=== PATIENT | male | born 1940 | race Caucasian/White ===

== ENCOUNTER 2017-11-29 12:56 | Inpatient (IN) ==
--- NOTE | 2017-11-29 14:57 | ED ---
HPI General Chief Complaint: Recheck/Abnormal Lab/Rx Stated Complaint: dr sent Time Seen by Provider: 11/29/17 14:13 Source: patient Mode of arrival: ambulatory Limitations: no limitations History of Present Illness MD Complaint: cough Onset (ago): month(s) Severity: mild Relieving factors: nothing Exacerbating factors: speaking Description of mucous: green Able to tolerate fluids by mouth: Yes Context: other (lymphoma) Treatments prior to arrival: antibiotics (3 different ABX in the past 6 weeks) Related Data Home Medications Medication Instructions Recorded Confirmed allopurinol 300 mg PO DAILY 10/29/17 11/29/17 apixaban [Eliquis] 5 mg PO BID 10/29/17 11/29/17 ascorbic acid (vitamin C) [Vitamin 500 mg PO DAILY 10/29/17 11/29/17 C] calcium carbonate [Calcium 500] 500 mg PO BID 10/29/17 11/29/17 cholecalciferol (vitamin D3) 1,000 unit PO DAILY 10/29/17 11/29/17 [Vitamin D3] coenzyme Q10 [Co Q-10] 100 mg PO DAILY 10/29/17 11/29/17 diltiazem HCl 240 mg PO DAILY 10/29/17 11/29/17 ibrutinib [Imbruvica] 420 mg PO DAILY 10/29/17 11/29/17 [id number]-algal oil 1 mg PO DAILY 10/29/17 11/29/17 [Metanx (algal oil)] [id number] oil [[place]-3 1 mg PO DAILY 10/29/17 11/29/17 Fish Oil] Allergies Allergy/AdvReac Type Severity Reaction Status Date / Time No Known Allergies Allergy Unverified 10/29/17 17:48 Review of Systems ROS: all other systems reviewed are negative [facility] Medical History Medical History A-fib (Acute) FH: cholecystectomy (Acute) Leukemia (Acute) Lymphoma (Acute) Melanoma (Acute) Family History Family History Sister Pancreatic cancer Mother Congestive heart failure Social History Social History Substance History: No History of Abuse Second Hand Smoke Exposure: No Smoking Status: Never smoker How Often Do You Have a Drink Containing Alcohol: Monthly or less Recent Travel in [facility] within the Last 8 Weeks: No Recent Out of Country Travel within the Last 8 Weeks: No Immunization History Tetanus Immunization: Unsure Hx Influenza Vaccine This Season: Yes Exam Const General: cooperative, healthy appearing and comfortable Orientation: alert, awake and oriented x3 Eyes Alignment and Position: alignment normal Conjunctivae: conjunctivae normal Sclera: sclerae normal EOM: EOM intact bilaterally Neck Neck: normal visual inspection, full ROM, no lymphadenopathy and supple Chest Chest: normal inspection of the chest Resp Effort & Inspection: normal respiratory effort and able to speak in complete sentences Auscultation: rhonchi (diffuse, mild) Cardio Rate: regular rate Rhythm: regular rhythm Back/Spine/Pelvis Cervical Spine: cervical ROM normal Thoracic/Lumbar Spine: thoraco-lumbar ROM normal Skin General: no rashes or lesions noted, turgor normal and dry skin Neuro General: alert, awake, oriented x3, moves all extremities and CN's II-XI intact bilaterally Extrem General: normal to inspection and full ROM Psych Appearance: grossly normal Mental Status: mental status grossly normal Speech and Movement: speech and movement normal Mood: congruent mood Affect: normal affect Attitude: cooperative Thought Process: normal Thought Content: normal Judgment: judgment good Course Initial Documented Vital Signs Temperature 97.5 F L 11/29/17 12:59 Pulse Rate 88 11/29/17 12:59 Respiratory Rate 17 11/29/17 12:59 Blood Pressure 114/66 11/29/17 12:59 Pulse Oximetry 97 11/29/17 12:59 Last Documented Vital Signs Temperature 97.9 F 12/01/17 16:00 Pulse Rate 73 12/01/17 16:00 Respiratory Rate 18 12/01/17 16:00 Blood Pressure 101/56 L 12/01/17 16:00 Pulse Oximetry 94 L 12/01/17 18:28 Sign Out Sign Out Data: Patient Sign Out occurred on 11/29/17 at 15:19. Patient's care was discussed, and care was transferred from Lorna Watkins to Rodrigo Lopez MD. Sign Out Comment: This patient is being signed out at 3 PM pending complete workup for possible pneumonia. All of his labs as well as the CT of his chest are pending. He has not yet been given any antibiotics. Last updated by Lorna Watkins at 11/29/17 15:11 Post-Handoff Eval: Patient CARE assume from Dr. Watkins by me Dr. Lopez at 1500, this is a 77-year- old male with a history of lymphoma on Imbruivcan presents emergency department with several months history of a cough. He has been on several courses of antibiotics including azithromycin, Keflex, Ceftin and the patient had No improvement, continues to have intermittent fevers as well as green productive sputum. Has a white count of 15,000, CT of the chest does show pleural effusion and consolidation of the left lower lobe. Discussion with the patient who appears quite well, we discussed options about inpatient management of his refractory pneumonia versus outpatient with a different antibiotic regimen. At this time he would like to be admitted to the hospital which I think is fair given his medical history his pleural effusion and the size of the pneumonia. He does also have elevated white count and fevers at home but is shy of Sirs criteria here. Blood cultures were started, he started on broad-spectrum antibiotics. Patient was also discussed with hematology oncology as well as hospitalist svp monetization. Medical Decision Making MDM Narrative Medical decision making narrative: This is an immunocompromised patient with a history of lymphoma who presents with a 6 weeks history of cough. He has been seen by his primary care physician who has treated him with 3 different antibiotics. His cough persist. His primary care physician sent him to us today for further evaluation and treatment. The patient reports that he has had outpatient plain films of his chest which have not shown pneumonia. He does have green purulent sputum. Medical Screen Exam Complete: Yes Emergency Medical Condition: Yes Differential Diagnosis Differential Diagnosis: Differential diagnosis includes but is not limited to viral respiratory illness, bronchitis, pneumonia, allergies, CHF, asthma/COPD. Medical Records Medical records reviewed: Yes I reviewed the patient's medical records. Medical history includes melanoma, lymphoma, anemia and atrial fibrillation. Lab Data Result diagrams: 12/01/17 06:33 12/01/17 09:15 Lab Results 11/29/17 11/29/17 11/29/17 Range/Units 15:05 15:05 15:05 WBC 14.9 H (4.0-11.0) th/mm3 RBC 3.81 L (4.50-5.90) mil/mm3 Hgb 12.3 L (13.0-17.0) gm/dL Hct 36.3 L (39.0-51.0) % MCV 95.3 (80.0-100.0) fL MCH 32.4 (27.0-34.0) pg MCHC 34.0 (32.0-36.0) % RDW 16.5 (11.6-17.2) % Plt Count 221 (150-450) th/mm3 MPV 6.8 L (7.0-11.0) fL Prelim Diff (Auto) Neut % (Auto) 80.3 H (16.0-70.0) % Lymph % (Auto) 11.7 (9.0-44.0) % Pitt % (Auto) 7.0 (0.0-8.0) % Eos % (Auto) 0.4 (0.0-4.0) % Baso % (Auto) 0.6 (0.0-2.0) % Neut # (Auto) 12.0 H (1.8-7.7) th/mm3 Lymph # (Auto) 1.7 (1.0-4.8) th/mm3 Pitt # (Auto) 1.0 H (0.0-0.9) th/mm3 Eos # (Auto) 0.1 (0.0-0.4) th/mm3 Baso # (Auto) 0.1 (0.0-0.2) th/mm3 WBC Differential . Seg Neuts % (Manual) (16-70) % Band Neuts % (Manual) (0-6) % Lymphocytes % (Manual) (9-44) % Monocytes % (Manual) (0-8) % Eosinophils % (Manual) (0-4) % Metamyelocytes % (Man) (0-1) % Myelocytes % (Man) (0-0) % Abs Neuts (Manual) (1.8-7.7) th/mm3 Differential Comment Auto diff final Platelet Estimate (Normal) Platelet Morphology (Normal) Ovalocytes (None) Sodium 135 L (136-145) meq/L Potassium 4.5 (3.5-5.1) meq/L Chloride 97 L (98-107) meq/L Carbon Dioxide 30.0 (21.0-32.0) meq/L Anion Gap 8 (5-15) meq/L BUN 16 (7-18) mg/dL Creatinine 1.02 (0.60-1.30) mg/dL Estimated GFR 71 L (>89) mL/min Random Glucose 104 (74-106) mg/dL Lactic Acid 0.7 (0.4-2.0) mmol/L Calcium 9.4 (8.5-10.1) mg/dL Magnesium (1.5-2.5) mg/dL Total Bilirubin 0.9 (0.2-1.0) mg/dL Direct Bilirubin (0.0-0.2) mg/dL Indirect Bilirubin (0.0-0.8) mg/dL AST 62 H (15-37) U/L ALT 97 H (12-78) U/L Alkaline Phosphatase 503 H (45-117) U/L Total Protein 7.3 (6.4-8.2) g/dL Albumin 2.9 L (3.4-5.0) g/dL Vancomycin Trough (5.0-10.0) mcg/mL 11/30/17 11/30/17 12/01/17 Range/Units 06:37 06:37 06:33 WBC 10.4 8.5 (4.0-11.0) th/mm3 RBC 3.22 L 3.35 L (4.50-5.90) mil/mm3 Hgb 10.4 L 11.0 L (13.0-17.0) gm/dL Hct 30.8 L 31.5 L (39.0-51.0) % MCV 95.6 93.9 (80.0-100.0) fL MCH 32.4 32.7 (27.0-34.0) pg MCHC 33.9 34.8 (32.0-36.0) % RDW 16.3 16.8 (11.6-17.2) % Plt Count 160 172 (150-450) th/mm3 MPV 7.0 7.1 (7.0-11.0) fL Prelim Diff (Auto) Slide review pending Neut % (Auto) 78.6 H 79.0 H (16.0-70.0) % Lymph % (Auto) 12.1 12.1 (9.0-44.0) % Pitt % (Auto) 8.1 H 7.9 (0.0-8.0) % Eos % (Auto) 0.6 0.6 (0.0-4.0) % Baso % (Auto) 0.6 0.4 (0.0-2.0) % Neut # (Auto) 8.2 H 6.7 (1.8-7.7) th/mm3 Lymph # (Auto) 1.3 1.0 (1.0-4.8) th/mm3 Pitt # (Auto) 0.8 0.7 (0.0-0.9) th/mm3 Eos # (Auto) 0.1 0.1 (0.0-0.4) th/mm3 Baso # (Auto) 0.1 0.0 (0.0-0.2) th/mm3 WBC Differential . Manual diff final Seg Neuts % (Manual) 81 H (16-70) % Band Neuts % (Manual) 1 (0-6) % Lymphocytes % (Manual) 11 (9-44) % Monocytes % (Manual) 4 (0-8) % Eosinophils % (Manual) 1 (0-4) % Metamyelocytes % (Man) 1 (0-1) % Myelocytes % (Man) 1 H (0-0) % Abs Neuts (Manual) 7.1 (1.8-7.7) th/mm3 Differential Comment Auto diff final . Platelet Estimate Normal (Normal) Platelet Morphology Normal (Normal) Ovalocytes 1+ H (None) Sodium 136 (136-145) meq/L Potassium 4.1 (3.5-5.1) meq/L Chloride 101 (98-107) meq/L Carbon Dioxide 26.8 (21.0-32.0) meq/L Anion Gap 8 (5-15) meq/L BUN 14 (7-18) mg/dL Creatinine 1.07 (0.60-1.30) mg/dL Estimated GFR 67 L (>89) mL/min Random Glucose 96 (74-106) mg/dL Lactic Acid (0.4-2.0) mmol/L Calcium 9.1 (8.5-10.1) mg/dL Magnesium (1.5-2.5) mg/dL Total Bilirubin 0.9 (0.2-1.0) mg/dL Direct Bilirubin 0.5 H (0.0-0.2) mg/dL Indirect Bilirubin 0.4 (0.0-0.8) mg/dL AST 34 (15-37) U/L ALT 66 (12-78) U/L Alkaline Phosphatase 374 H (45-117) U/L Total Protein 6.2 L D (6.4-8.2) g/dL Albumin 2.4 L (3.4-5.0) g/dL Vancomycin Trough (5.0-10.0) mcg/mL 12/01/17 Range/Units 09:15 WBC (4.0-11.0) th/mm3 RBC (4.50-5.90) mil/mm3 Hgb (13.0-17.0) gm/dL Hct (39.0-51.0) % MCV (80.0-100.0) fL MCH (27.0-34.0) pg MCHC (32.0-36.0) % RDW (11.6-17.2) % Plt Count (150-450) th/mm3 MPV (7.0-11.0) fL Prelim Diff (Auto) Neut % (Auto) (16.0-70.0) % Lymph % (Auto) (9.0-44.0) % Pitt % (Auto) (0.0-8.0) % Eos % (Auto) (0.0-4.0) % Baso % (Auto) (0.0-2.0) % Neut # (Auto) (1.8-7.7) th/mm3 Lymph # (Auto) (1.0-4.8) th/mm3 Pitt # (Auto) (0.0-0.9) th/mm3 Eos # (Auto) (0.0-0.4) th/mm3 Baso # (Auto) (0.0-0.2) th/mm3 WBC Differential Seg Neuts % (Manual) (16-70) % Band Neuts % (Manual) (0-6) % Lymphocytes % (Manual) (9-44) % Monocytes % (Manual) (0-8) % Eosinophils % (Manual) (0-4) % Metamyelocytes % (Man) (0-1) % Myelocytes % (Man) (0-0) % Abs Neuts (Manual) (1.8-7.7) th/mm3 Differential Comment Platelet Estimate (Normal) Platelet Morphology (Normal) Ovalocytes (None) Sodium 138 (136-145) meq/L Potassium 4.0 (3.5-5.1) meq/L Chloride 104 (98-107) meq/L Carbon Dioxide 27.5 (21.0-32.0) meq/L Anion Gap 7 (5-15) meq/L BUN 11 (7-18) mg/dL Creatinine 0.98 (0.60-1.30) mg/dL Estimated GFR 75 L (>89) mL/min Random Glucose 109 H (74-106) mg/dL Lactic Acid (0.4-2.0) mmol/L Calcium 9.2 (8.5-10.1) mg/dL Magnesium 2.1 (1.5-2.5) mg/dL Total Bilirubin (0.2-1.0) mg/dL Direct Bilirubin (0.0-0.2) mg/dL Indirect Bilirubin (0.0-0.8) mg/dL AST (15-37) U/L ALT (12-78) U/L Alkaline Phosphatase (45-117) U/L Total Protein (6.4-8.2) g/dL Albumin (3.4-5.0) g/dL Vancomycin Trough 14.8 H (5.0-10.0) mcg/mL Imaging Data Radiologist's impression: Chest CT 11/29/17 14:38 CONCLUSION: 1. Left pleural effusion, and left lower lobe pulmonary consolidation identified. 2. Multiple right basilar airspace disease. 3. Subcarinal lymphadenopathy. Discharge Plan Discharge Disposition Patient Disposition: 30 Still Patient Discharge Condition Condition: Fair Discharge Details Diagnosis: Pneumonia, Failure of outpatient treatment, Leukocytosis, CLL (chronic lymphocytic leukemia) Physicians Team ED Provider: Rodrigo Lopez Primary Care Provider: Madelin Tolbert Attending Provider: Lauryn Carl Other Providers: Dionte Panda Status ED Status: Left Department Discharge Information Discharge Date/Time: 11/29/17 19:15
[2017-11-29 15:29] LABS: Baso # (Auto) 0.1 th/mm3 (0.0-0.2); Baso % (Auto) 0.6 % (0.0-2.0); Eos # (Auto) 0.1 th/mm3 (0.0-0.4); Eos % (Auto) 0.4 % (0.0-4.0); Hematocrit 36.3 % (39.0-51.0); Hemoglobin 12.3 gm/dL (13.0-17.0); Lymph # (Auto) 1.7 th/mm3 (1.0-4.8); Lymph % (Auto) 11.7 % (9.0-44.0); Mean Corpuscular Hemoglobin 32.4 pg (27.0-34.0); Mean Corpuscular Volume 95.3 fL (80.0-100.0); Mean Platelet Volume 6.8 fL (7.0-11.0); Neut % (Auto) 80.3 % (16.0-70.0); Platelet Count 221 th/mm3 (150-450); Red Blood Count 3.81 mil/mm3 (4.50-5.90); Red Cell Distribution Width 16.5 % (11.6-17.2); White Blood Count 14.9 th/mm3 (4.0-11.0)
[2017-11-29 15:45] LABS: Alanine Aminotransferase 97 U/L (12-78); Albumin 2.9 g/dL (3.4-5.0); Anion Gap 8 meq/L (5-15); Aspartate Aminotransferase 62 U/L (15-37); Blood Urea Nitrogen 16 mg/dL (7-18); Calcium 9.4 mg/dL (8.5-10.1); Chloride 97 meq/L (98-107); Glomerular Filtration Rate 71 mL/min (>89); Glucose,Random 104 mg/dL (74-106); Potassium 4.5 meq/L (3.5-5.1); Sodium 135 meq/L (136-145)
[2017-11-29 15:48] LABS: Alkaline Phosphatase 503 U/L (45-117); Total Protein 7.3 g/dL (6.4-8.2)
--- NOTE | 2017-11-29 16:06 | CT ---
EXAM DATE: 11/29/2017 2:49 PM EDT AGE/SEX: 77 years / Male INDICATIONS: Cough congestion generalize weakness generalize weakness CLINICAL DATA: This is the patient's initial encounter. Patient reports that signs and symptoms have been present for 1 day and indicates a pain score of 0/10. MEDICAL/SURGICAL HISTORY: Lymphoma. Leukemia. Melanoma a-fib Cholecystectomy. Prostatectomy. res ection of terminal ileum RADIATION DOSE: 14.92 CTDI (mGy) COMPARISON: No prior exams available for comparison. TECHNIQUE: Multiple contiguous axial images were obtained through the chest without contrast. Image s were obtained in suspended respiration using multiple row detector helical technique. Using automa matt exposure control and adjustment of the mA and/or kV according to patient size, radiation dose was kept as low as reasonably achievable to obtain optimal diagnostic quality images. DICOM format imag e data is available electronically for review and comparison. FINDINGS: There is dense consolidation with air bronchogram formation in the left lower lobe and patchy right l ower lobe airspace disease in the posterior costophrenic angle. There is a small left-sided pleural e ffusion. There is adenopathy in the subcarinal region measuring up to 2.8 cm in short axis dimension. Otherwise subcentimeter mediastinal lymph nodes are present. There is coronary artery calcification identified. The osseous structures are intact. CONCLUSION: 1. Left pleural effusion, and left lower lobe pulmonary consolidation identified. 2. Multiple right basilar airspace disease. 3. Subcarinal lymphadenopathy. Electronically signed by: Jonh Gutierres MD 11/29/2017 4:05 PM EDT
[2017-11-29] MEDS ORDERED: Piperacil/Tazo 4.5 GM Premix 4.5 GM/100 ML BAG IV.SIG ONE (17:38)
[2017-11-29] MEDS ORDERED: Vancomycin Inj 1 GM/200 ML PIGGYBACK IV.SIG SCH (18:00)
[2017-11-29] MEDS ORDERED: Bisacodyl 10 MG Supp RECTAL PRN (18:19)
[2017-11-29] MEDS ORDERED: Acetaminophen 325 MG Tablet PO PRN (18:19)
[2017-11-29] MEDS ORDERED: Sod Chloride 0.9% Inj 1,000 ML IV.CONT SCH (18:30)
[2017-11-29] MEDS ORDERED: Vancomycin Consult Pharmacy OTHER PRN (18:45)
--- NOTE | 2017-11-29 19:01 | P.HP ---
History of Present Illness Service: [facility] Primary Care Physician: Amy Waggoner MD Chief Complaint: fever, fatigue, cough, chest congestion x 2 weeks History of Present Illness: Mr. Rosario is a pleasant 77-year-old male with history of large cell lymphoma, prostate cancer status post prostatectomy, recent diagnosis of A. 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 Patient presented to the emergency room at the request of his primary care physician for complaint of fatigue, cough chest congestion and fever. Patient endorses that he has been feeling poorly for the last 2 weeks, fever has been as high as 102, this morning he was 101.5. He has had increased cough with nasal congestion, his sputum is yellow in color. No chest pain, no shortness of breath. He has been feeling and very fatigued and has noted increased dizziness in the last couple of days. States that he has been sleeping on the reclining chair as every time he lays flat he has increased nasal drainage, increase coughing, and mild shortness of breath. Appetite has been poor. He denies any nausea, no vomiting , no diarrhea. No urinary symptoms. Had been in to see his primary care physician and was initially prescribed Z-Gabe. His symptoms did not improve so he went back to his PCP and was put on Ceftin. On October 29 he came to the ED had a CT of the abdomen and was found with pancreatitis, left renal mass as well as UTI and completed Keflex. He has taken a multitude of sglu-ybs-svdbgac medications including NyQuil, DayQuil, Mucinex Sudafed and phenylephrine. Today he went to see Dr. Waggoner who is his new primary care physician and was noted tachypneic and febrile therefore he was sent here for further evaluation. Patient was seen in the emergency room, laboratory workup completed. CBC remarkable for WBC 14.9, neutrophil 80.3. BMP remarkable for sodium of 135, chloride 97, AST 62, ALT 97, alkaline phosphatase 503. Lactic acid was 0.7. He was afebrile, hemodynamically stable. Sats 100% on room air. CT of the chest was completed, with findings of left pleural effusion and left lower lobe pulmonary consolidation as well as multiple right basilar airspace disease and subcarinal lymphadenopathy. Blood cultures were obtained, patient was started on vancomycin as well as Zosyn. EKG shows A. fib, well controlled. Indicates he has been put on Eliquis 5 mg p.o. twice daily and had a recent echocardiogram with Dr. Rockwell. He is unsure of findings. Patient also endorses conjunctival erythema with drainage, he has not been put on ophthalmic ointments. Patient's oncologist is Dr. Panda. Indicates that in regards to left renal mass, he went up to the [facility] and they are recommending a follow-up CT in January. At this time he is only being treated for his CLL. He had recent excision of left forearm melanoma September 2017, per review of notes from oncology it is superficial. Patient is admitted for further evaluation and treatment. - Diagnosis (1) Pneumonia (2) Failure of outpatient treatment (3) Leukocytosis (4) CLL (chronic lymphocytic leukemia) (5) Left renal mass (6) Atrial fibrillation (7) Transaminitis (8) Hx pulmonary embolism (9) H/O melanoma excision (10) Conjunctivitis Inpatient Certification: I certify that the inpatient services were ordered in accordance with Medicare regulations governing the order. This includes certification that hospital inpatient services are reasonable and necessary and in the case of services not specified as inpatient-only under 42 CFR 419.22(n), that they are appropriately provided as inpatient services in accordance to with the 2-midnight benchmark under 43 CFR 412.3(e) Estimated Total Length of Stay (Days): 3 Plans for Post Hospital Care: Not yet determined Review of Systems All other systems reviewed negative except as stated in HPI PMFSH - History History Provided By: Patient - Medical History Medical History: Medical History (Last Reviewed 11/29/17 @ 18:40 by TANYA Perez) GERD (gastroesophageal reflux disease) Gout Iron deficiency anemia Left renal mass Pancreatitis Prostate cancer A-fib Diverticulosis FH: cholecystectomy Leukemia Lymphoma Melanoma Pulmonary embolus Skin cancer - Surgical History Surgical History: Surgical History (Last Reviewed 11/29/17 @ 18:40 by TANYA Perez) History of resection of small bowel Status post surgical removal of malignant neoplasm of skin H/O radical prostatectomy History of resection of terminal ileum S/P appy - Family History Family History: Family History (Last Updated 11/29/17 @ 18:41 by TANYA Perez) Sister Pancreatic cancer Mother Congestive heart failure - Social History I have reviewed the patient's Social History: Yes - Tobacco History Second Hand Smoke Exposure: No Smoking Status: Never smoker - Alcohol History How Often Do You Have a Drink Containing Alcohol: Monthly or less - Substance Use History Substance History: No History of Abuse - Travel History Recent Travel in the [place] Within the Last 8 Weeks: No Recent Travel Out of the Country Within the Last 8 Weeks: No - Immunization History Tetanus Immunization: Unsure Hx Influenza Vaccine This Season: Yes Medications and Allergies Active Medications: Active Medications Acetaminophen (Tylenol) 650 mg PO Q4H PRN PRN Reason: Temp > 100.4 Al Hydroxide/Mg Hydroxide (Milk Of Magnesia Liq) 30 ml PO Q12H PRN PRN Reason: Mild Constipation Bisacodyl (Dulcolax Supp) 10 mg RECTAL DAILY PRN PRN Reason: SEVERE CONSITIPATION Vancomycin/Sodium Chloride (Vancomycin Inj) 1 gm in 200 mls @ 200 mls/hr 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 [facility] Sodium Chloride (Ns Inj) 1,000 mls @ 75 mls/hr IV.CONT .[id number] [facility] Last Admin: 11/29/17 18:34 Dose: 75 mls/hr Lactulose (Lactulose Liq) 30 ml PO DAILY PRN PRN Reason: SEVERE CONSITIPATION Ondansetron HCl (Zofran Inj) 4 mg IV.PUSH Q6H PRN PRN Reason: NAUSEA OR VOMITING Sennosides (Senokot) 17.2 mg PO Q12H PRN PRN Reason: Moderate Constipation Allergies Allergy/AdvReac Type Severity Reaction Status Date / Time No Known Allergies Allergy Unverified 10/29/17 17:48 Home Medications Medication Instructions Recorded Confirmed Type allopurinol 300 mg PO DAILY 10/29/17 11/29/17 History apixaban [Eliquis] 5 mg PO BID 10/29/17 11/29/17 History ascorbic acid (vitamin C) [Vitamin 500 mg PO DAILY 10/29/17 11/29/17 History C] calcium carbonate [Calcium 500] 500 mg PO BID 10/29/17 11/29/17 History cholecalciferol (vitamin D3) 1,000 unit PO DAILY 10/29/17 11/29/17 History [Vitamin D3] coenzyme Q10 [Co Q-10] 100 mg PO DAILY 10/29/17 11/29/17 History diltiazem HCl 240 mg PO DAILY 10/29/17 11/29/17 History ibrutinib [Imbruvica] 420 mg PO DAILY 10/29/17 11/29/17 History gjsabbvsh-R8-zbU14-algal oil 1 mg PO DAILY 10/29/17 11/29/17 History [Metanx (algal oil)] ecdba-[id number]-epa-fish oil [[place]-3 1 mg PO DAILY 10/29/17 11/29/17 History Fish Oil] Exam Vital signs: Vital Signs 11/29/17 12:59 11/29/17 13:07 11/29/17 18:35 Temperature 97.5 F L Pulse Rate 88 86 90 Respiratory Rate 17 20 17 Blood Pressure 114/66 126/77 131/64 Pulse Oximetry 97 97 98 Intake & Output 11/28/17 11/29/17 11/29/17 18:59 06:59 18:59 Weight 113.398 kg Narrative: GENERAL: Well-nourished, well-developed patient mildly tachypnea SKIN: Warm and dry. Right forearm with incision from recent melanoma removal, has Steri-Strips. Edges well approximated, no erythema, no drainage. HEAD: Atraumatic. Normocephalic. EYES: Pupils equal and round. No scleral icterus. Bilateral conjunctiva injected with a small amount of purulent drainage, right eye. ENT: Nasal congestion, nasal mucosa injected. Mucous membranes pink and moist. NECK: Trachea midline. No JVD. CARDIOVASCULAR: Irregularly irregular, no murmurs, no rubs, no gallops. RESPIRATORY: Nonproductive cough, rhonchi left lower lobe greater than right. Mildly tachypneic, no accessory muscle use. GASTROINTESTINAL: Abdomen soft, non-tender, nondistended. Hepatic and splenic margins not palpable. MUSCULOSKELETAL: Extremities without clubbing, cyanosis, or edema. No obvious deformities. NEUROLOGICAL: Awake and alert and oriented x3. No obvious cranial nerve deficits. Motor grossly within normal limits. Five out of 5 muscle strength in the arms and legs. Normal speech. PSYCHIATRIC: Appropriate mood and affect; insight and judgment normal. Results - Labs CBC & Chem 7: 11/29/17 15:05 11/29/17 15:05 Labs: Laboratory Results - last 24 hr 11/29/17 11/29/17 11/29/17 15:05 15:05 15:05 WBC 14.9 H RBC 3.81 L Hgb 12.3 L Hct 36.3 L MCV 95.3 MCH 32.4 MCHC 34.0 RDW 16.5 Plt Count 221 MPV 6.8 L Neut % (Auto) 80.3 H Lymph % (Auto) 11.7 [place] % (Auto) 7.0 Eos % (Auto) 0.4 Baso % (Auto) 0.6 Neut # (Auto) 12.0 H Lymph # (Auto) 1.7 [place] # (Auto) 1.0 H Eos # (Auto) 0.1 Baso # (Auto) 0.1 WBC Differential . Differential Comment Auto diff final Sodium 135 L Potassium 4.5 Chloride 97 L Carbon Dioxide 30.0 Anion Gap 8 BUN 16 Creatinine 1.02 Estimated GFR 71 L Random Glucose 104 Lactic Acid 0.7 Calcium 9.4 Total Bilirubin 0.9 AST 62 H ALT 97 H Alkaline Phosphatase 503 H Total Protein 7.3 Albumin 2.9 L - Imaging Impressions Chest CT 11/29/17 14:38 CONCLUSION: 1. Left pleural effusion, and left lower lobe pulmonary consolidation identified. 2. Multiple right basilar airspace disease. 3. Subcarinal lymphadenopathy. Caprini VTE Risk Assessment Caprini VTE Risk Assessment: Moderate/High Risk (score >= 2) Caprini Risk Assessment Model: Point Value = 1 Point Value = 2 Point Value = 3 Point Value = 5 Age 41-60 Minor surgery BMI > 25 kg/m2 Swollen legs Varicose veins or History of unexplained or recurrent spontaneous Oral contraceptives or hormone replacement Sepsis (< 1 month) Serious lung disease, including pneumonia (< 1 month) Abnormal pulmonary function Acute myocardial infarction Congestive heart failure (< 1 month) History of inflammatory bowel disease Medical patient at bed rest Age 61-74 Arthroscopic surgery Major open surgery (> 45 min) Laparoscopic surgery (> 45 min) Malignancy Confined to bed (> 72 hours) Immobilizing plaster cast Central venous access Age >= 75 History of VTE Family history of VTE Factor V Leiden Prothrombin [id number] Lupus anticoagulant Anticardiolipin antibodies Elevated serum homocysteine Heparin-induced thrombocytopenia Other congenital or acquired thrombophilia Stroke (< 1 month) Elective arthroplasty Hip, pelvis, or leg fracture Acute spinal cord injury (< 1 month) Prophylaxis Regimen: Total Risk Factor Score Risk Level Prophylaxis Regimen 0-1 Low Early ambulation 2 Moderate Order ONE of the following: *Sequential Compression Device (SCD) *Heparin 5000 units SQ BID 3-4 Higher Order ONE of the following medications: *Heparin 5000 units SQ TID *Enoxaparin/Lovenox 40 mg SQ daily (WT < 150 kg, CrCl > 30 mL/min) *Enoxaparin/Lovenox 30 mg SQ daily (WT < 150 kg, CrCl > 10-29 mL/min) *Enoxaparin/Lovenox 30 mg SQ BID (WT < 150 kg, CrCl > 30 mL/min) AND/OR *Sequential Compression Device (SCD) 5 or more Highest Order ONE of the following medications: *Heparin 5000 units SQ TID (Preferred with Epidurals) *Enoxaparin/Lovenox 40 mg SQ daily (WT < 150 kg, CrCl > 30 mL/min) *Enoxaparin/Lovenox 30 mg SQ daily (WT < 150 kg, CrCl > 10-29 mL/min) *Enoxaparin/Lovenox 30 mg SQ BID (WT < 150 kg, CrCl > 30 mL/min) AND *Sequential Compression Device (SCD) Assessment and Plan - Assessment (1) Pneumonia Code(s): J18.9 - Pneumonia, unspecified organism Status: Acute (2) Failure of outpatient treatment Code(s): Z78.9 - Other specified health status Status: Acute (3) Leukocytosis Code(s): D72.829 - Elevated white blood cell count, unspecified Status: Acute (4) CLL (chronic lymphocytic leukemia) Code(s): C91.90 - Lymphoid leukemia, unspecified not having achieved remission Status: Chronic (5) Left renal mass Code(s): N28.89 - Other specified disorders of kidney and ureter Status: Acute (6) Atrial fibrillation Code(s): I48.91 - Unspecified atrial fibrillation Status: Chronic (7) Transaminitis Code(s): R74.0 - Nonspecific elevation of levels of transaminase and lactic acid dehydrogenase [LDH] Status: Acute (8) Hx pulmonary embolism Code(s): Z86.711 - Personal history of pulmonary embolism Status: Chronic (9) H/O melanoma excision Code(s): Z98.890 - Other specified postprocedural states; Z85.820 - Personal history of malignant melanoma of skin Status: Chronic (10) Conjunctivitis Code(s): H10.9 - Unspecified conjunctivitis Status: Acute - Plan 77-year-old male with complex medical history including large cell lymphoma, CLL currently on Imbruvica, A. fib, recent melanoma excision, pulmonary emboli. Presents complaining of cough, fever, fatigue, chest congestion for the last 2 weeks. Has been on 3 different antibiotics and lwyw-eex-peimzhz medications, has failed outpatient therapy. Bibasilar pneumonia, pt has failed outpatient therapy, was treated with Z-Gabe, Keflex as well as Ceftin. Also immunocompromised, currently on Imbruvica for CLL. CT findings of left pleural effusion, left lower lobe pulmonary consolidation as well as multiple right basilar airspace disease; subcarinal lymphadenopathy Mild leukocytosis, febrile. Hemodynamically stable. -Patient will be continued on vancomycin with pharmacy consultation Continue with Zosyn 3.375 g IV every 6 Duo nebs as needed for wheezing We will add Flonase 2 puffs daily Zyrtec 10 mg p.o. daily Hycodan as needed for cough -Continue to follow blood cultures Conjunctivitis Erythromycin ointment to each eye 4 times a day Transaminitis, etiology unclear -Follow LFTs in the morning A. fib, well controlled -Continue Eliquis 5 mg p.o. twice daily Continue Cardizem 240 mg p.o. daily Continuous cardiac telemetry monitoring Recent findings of left renal mass Patient to follow-up with [facility] and have follow-up CT scan in January as planned CLL History of large cell lymphoma History of prostate cancer and prostatectomy Follows up with Dr. Panda -Continue with Imbruvica- will need to bring from home -Patient is to follow-up with Dr. Panda as outpatient History of melanoma, had excision of lesion to the right forearm September 2017 We will have nursing remove Steri-Strips, incision is healing well. History of pulmonary emboli Continue with Eliquis Plan of care discussed with patient and , their questions answered in detail. Plan of care discussed with RN. 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 Planning: DC planning home in 2-3 days (1) Pneumonia Qualifiers: Pneumonia type: due to unspecified organism Laterality: bilateral Lung location: unspecified part of lung Qualified Code(s): J18.9 - Pneumonia, unspecified organism (3) Leukocytosis Qualifiers: Leukocytosis type: unspecified Qualified Code(s): D72.829 - Elevated white blood cell count, unspecified (6) Atrial fibrillation Qualifiers: Atrial fibrillation type: chronic Qualified Code(s): I48.2 - Chronic atrial fibrillation (10) Conjunctivitis Qualifiers: Conjunctivitis type: acute Acute conjunctivitis type: unspecified Laterality : bilateral Qualified Code(s): H10.33 - Unspecified acute conjunctivitis, bilateral
[2017-11-29] MEDS: Erythromycin 0.5% Opth Oint 3.5 GM Tube EACH EYE SCH (21:17)
[2017-11-29] MEDS: Benzonatate 100 MG Capsule PO PRN (21:17)
[2017-11-29] MEDS: Sod Chloride 0.9% Inj 1,000 ML IV.CONT SCH (21:33)
--- NOTE | 2017-11-29 22:09 | ECG ---
Date Performed: 11/29/2017 Time Performed: 15:11:49 PTAGE: 77 years EKG: ATRIAL FIBRILLATION ABNORMAL RHYTHM ECG PREVIOUS TRACING : 07/13/2014 13.26 Compared to previous tracing, SR no longer present DOCTOR: Vitor Flood Interpretating Date/Time 11/29/2017 22:08:19
[2017-11-29] MEDS: Vancomycin Inj 1,500 MG in Sodium Chlor 0.9% Inj 500 ML IV.SIG SCH (23:54)
[2017-11-29] MEDS: Piperacil/Tazo 3.375 GM Premix 50 ML IV.SIG SCH (23:56)
[2017-11-30] MEDS: Piperacil/Tazo 3.375 GM Premix 50 ML IV.SIG SCH ×3 (06:09→17:50)
[2017-11-30 06:56] LABS: Baso # (Auto) 0.1 th/mm3 (0.0-0.2); Baso % (Auto) 0.6 % (0.0-2.0); Eos # (Auto) 0.1 th/mm3 (0.0-0.4); Eos % (Auto) 0.6 % (0.0-4.0); Hematocrit 30.8 % (39.0-51.0); Hemoglobin 10.4 gm/dL (13.0-17.0); Lymph # (Auto) 1.3 th/mm3 (1.0-4.8); Lymph % (Auto) 12.1 % (9.0-44.0); Mean Corpuscular HGB Conc 33.9 % (32.0-36.0); Mean Corpuscular Hemoglobin 32.4 pg (27.0-34.0); Mean Corpuscular Volume 95.6 fL (80.0-100.0); Mono # (Auto) 0.8 th/mm3 (0.0-0.9); Mono % (Auto) 8.1 % (0.0-8.0); Neut # (Auto) 8.2 th/mm3 (1.8-7.7); Neut % (Auto) 78.6 % (16.0-70.0); Platelet Count 160 th/mm3 (150-450); Red Blood Count 3.22 mil/mm3 (4.50-5.90); Red Cell Distribution Width 16.3 % (11.6-17.2); White Blood Count 10.4 th/mm3 (4.0-11.0)
[2017-11-30 07:12] LABS: Albumin 2.4 g/dL (3.4-5.0); Calcium 9.1 mg/dL (8.5-10.1); Carbon Dioxide 26.8 meq/L (21.0-32.0); Potassium 4.1 meq/L (3.5-5.1)
[2017-11-30 07:16] LABS: Total Protein 6.2 g/dL (6.4-8.2)
[2017-11-30] MEDS ORDERED: IMBRUVICA 420 MG PO SCH (09:00)
[2017-11-30] MEDS: Benzonatate 100 MG Capsule PO PRN ×2 (09:09→22:05)
[2017-11-30] MEDS: dilTIAZem CD 240 MG Capsule PO SCH (09:10)
[2017-11-30] MEDS: Allopurinol 300 MG Tablet PO SCH (09:10)
[2017-11-30] MEDS: Vancomycin Inj 1,500 MG in Sodium Chlor 0.9% Inj 500 ML IV.SIG SCH ×2 (09:10→21:59)
[2017-11-30] MEDS: Erythromycin 0.5% Opth Oint 3.5 GM Tube EACH EYE SCH ×4 (09:11→21:59)
[2017-11-30] MEDS: Sod Chloride 0.9% Inj 1,000 ML IV.CONT SCH ×2 (09:13→23:00)
--- NOTE | 2017-11-30 10:55 | P.PNIM ---
Subjective Interval history: Patient complains of a cough. He does not have any other significant complaints. Physical Exam Vital signs: Vital Signs 11/29/17 12:59 11/29/17 13:07 11/29/17 18:35 Temperature 97.5 F L Pulse Rate 88 86 90 Respiratory Rate 17 20 17 Blood Pressure 114/66 126/77 131/64 Pulse Oximetry 97 97 98 11/29/17 20:00 11/30/17 00:00 11/30/17 04:00 Temperature 98.8 F 97.5 F L 97.6 F Pulse Rate 102 H 101 H 100 H Respiratory Rate 20 20 20 Blood Pressure 110/60 101/54 L 115/66 Pulse Oximetry 96 92 L 93 L 11/30/17 08:00 Temperature 97.6 F Pulse Rate 91 H Respiratory Rate 16 Blood Pressure 111/55 L Pulse Oximetry 95 Intake & Output 11/29/17 11/30/17 11/30/17 18:59 06:59 18:59 Intake Total 1515 / 1515 1000 / 1000 Balance 1515 / 1515 1000 / 1000 Weight 113.398 kg 111.2 kg Intake: IV 1515 / 1515 1000 / 1000 NS Inj 1,000 ML @ 75 mls/hr IV. 800 / 800 1000 / 1000 CONT .[id number] [facility] Rx#:[id number] Zosyn 3.375 GM Premix 50 ML @ 100 / 100 100 mls/hr IV.SIG Q6H [facility] Rx#: [id number] Zosyn 4.5 GM Premix 4.5 gm In 100 / 100 100 ml @ 200 mls/hr IV.SIG ONCE ONE Rx#:[id number] Vancomycin Inj 1,500 MG In NS 515 / 515 Inj 500 ML @ 250 mls/hr IV.SIG Q12H [facility] Rx#:[id number] Other: # Voids 3 Date of Last Bowel Movement 11/29/17 # Incontinent Bowel Movements 1 Narrative: General patient complains of a cough HEENT extraocular movements are intact, clear oropharyngeal mucosa, no JVD Cardiovascular S1-S2 audible Respiratory left basilar crackles on auscultation. Abdomen soft, nontender, nondistended, normal bowel sounds Extremities nonpitting edema noted of bilateral lower extremities up to the shins. Neuro cranial patient moves all 4 extremities sensation is intact bilaterally Results - Labs CBC & Chem 7: 11/30/17 06:37 10/03/18 06:37 Laboratory Results - last 24 hr 11/29/17 11/29/17 11/29/17 15:05 15:05 15:05 WBC 14.9 H RBC 3.81 L Hgb 12.3 L Hct 36.3 L MCV 95.3 MCH 32.4 MCHC 34.0 RDW 16.5 Plt Count 221 MPV 6.8 L Neut % (Auto) 80.3 H Lymph % (Auto) 11.7 [place] % (Auto) 7.0 Eos % (Auto) 0.4 Baso % (Auto) 0.6 Neut # (Auto) 12.0 H Lymph # (Auto) 1.7 [place] # (Auto) 1.0 H Eos # (Auto) 0.1 Baso # (Auto) 0.1 WBC Differential . Differential Comment Auto diff final Sodium 135 L Potassium 4.5 Chloride 97 L Carbon Dioxide 30.0 Anion Gap 8 BUN 16 Creatinine 1.02 Estimated GFR 71 L Random Glucose 104 Lactic Acid 0.7 Calcium 9.4 Total Bilirubin 0.9 Direct Bilirubin Indirect Bilirubin AST 62 H ALT 97 H Alkaline Phosphatase 503 H Total Protein 7.3 Albumin 2.9 L 11/30/17 11/30/17 06:37 06:37 WBC 10.4 RBC 3.22 L Hgb 10.4 L Hct 30.8 L MCV 95.6 MCH 32.4 MCHC 33.9 RDW 16.3 Plt Count 160 MPV 7.0 Neut % (Auto) 78.6 H Lymph % (Auto) 12.1 [place] % (Auto) 8.1 H Eos % (Auto) 0.6 Baso % (Auto) 0.6 Neut # (Auto) 8.2 H Lymph # (Auto) 1.3 [place] # (Auto) 0.8 Eos # (Auto) 0.1 Baso # (Auto) 0.1 WBC Differential . Differential Comment Auto diff final Sodium 136 Potassium 4.1 Chloride 101 Carbon Dioxide 26.8 Anion Gap 8 BUN 14 Creatinine 1.07 Estimated GFR 67 L Random Glucose 96 Lactic Acid Calcium 9.1 Total Bilirubin 0.9 Direct Bilirubin 0.5 H Indirect Bilirubin 0.4 AST 34 ALT 66 Alkaline Phosphatase 374 H Total Protein 6.2 L D Albumin 2.4 L - Imaging Impressions Chest CT 11/29/17 14:38 CONCLUSION: 1. Left pleural effusion, and left lower lobe pulmonary consolidation identified. 2. Multiple right basilar airspace disease. 3. Subcarinal lymphadenopathy. Assessment and Plan - Assessment (1) Pneumonia Code(s): J18.9 - Pneumonia, unspecified organism Status: Acute (2) Failure of outpatient treatment Code(s): Z78.9 - Other specified health status Status: Acute (3) Leukocytosis Code(s): D72.829 - Elevated white blood cell count, unspecified Status: Acute (4) CLL (chronic lymphocytic leukemia) Code(s): C91.90 - Lymphoid leukemia, unspecified not having achieved remission Status: Chronic (5) Left renal mass Code(s): N28.89 - Other specified disorders of kidney and ureter Status: Acute (6) Atrial fibrillation Code(s): I48.91 - Unspecified atrial fibrillation Status: Chronic (7) Transaminitis Code(s): R74.0 - Nonspecific elevation of levels of transaminase and lactic acid dehydrogenase [LDH] Status: Acute (8) Hx pulmonary embolism Code(s): Z86.711 - Personal history of pulmonary embolism Status: Chronic (9) H/O melanoma excision Code(s): Z98.890 - Other specified postprocedural states; Z85.820 - Personal history of malignant melanoma of skin Status: Chronic (10) Conjunctivitis Code(s): H10.9 - Unspecified conjunctivitis Status: Acute - Plan 77-year-old male with a medical history including large cell lymphoma, CLL currently on Imbruvica following up with Rusty Leggett on [facility], recent melanoma excision, pulmonary emboli. Presents complaining of cough, fever, fatigue, chest congestion for the last 2 weeks. Has been on 3 different antibiotics and [id number] medications, has failed outpatient therapy. 1. Sepsis secondary to left lower lobe pneumonia with pleural effusion. Failed outpatient Z-Gabe, Keflex, Ceftin Patient is immunocompromise currently on Imbruvica for CLL. Patient had complaints of fevers and a cough with some sputum production over the past 7 weeks as per the patient. Labs show an elevated WBC count. WBC count now downtrending. Patient states that he has some shortness of breath on exertion however at rest he has only a cough. CT scan of the chest shows a left lower lobe pneumonia as well as a left sided pleural effusion. He is currently on IV Zosyn and vancomycin. Continue DuoNeb treatments as needed Blood cultures are pending. Sputum culture ordered. Continue IV fluids. 2. CLL 3. Left renal mass Patient is a diagnosis of CLL and is currently on Imbruvica. Heme oncology consultation ordered. As per documentation the patient has follow-up scheduled for January at [facility] with a repeat CT scan to evaluate the renal mass. As per documentation the patient's is to bring the patient's medication to the hospital. 4. Conjunctivitis Possibly viral. Erythromycin ointment ordered by admitting team. Continue current management. No purulent drainage noted. 5. Atrial fibrillation 6. History of pulmonary embolus Heart rate is under control. Continue Cardizem. Continue Eliquis Bibasilar pneumonia, pt has failed outpatient therapy, was treated with Z-Gabe, Keflex as well as Ceftin. Also immunocompromised, currently on Imbruvica for CLL. CT findings of left pleural effusion, left lower lobe pulmonary consolidation as well as multiple right basilar airspace disease; subcarinal lymphadenopathy Mild leukocytosis, febrile. Hemodynamically stable. -Patient will be continued on vancomycin with pharmacy consultation Continue with Zosyn 3.375 g IV every 6 Duo nebs as needed for wheezing We will add Flonase 2 puffs daily Zyrtec 10 mg p.o. daily Hycodan as needed for cough -Continue to follow blood cultures Conjunctivitis Erythromycin ointment to each eye 4 times a day Transaminitis, etiology unclear -Follow LFTs in the morning A. fib, well controlled -Continue Eliquis 5 mg p.o. twice daily Continue Cardizem 240 mg p.o. daily Continuous cardiac telemetry monitoring Recent findings of left renal mass Patient to follow-up with [facility] and have follow-up CT scan in January as planned CLL History of large cell lymphoma History of prostate cancer and prostatectomy Follows up with Dr. Panda -Continue with Imbruvica- will need to bring from home -Patient is to follow-up with Dr. Panda as outpatient History of melanoma, had excision of lesion to the right forearm September 2017 We will have nursing remove Steri-Strips, incision is healing well. History of pulmonary emboli Continue with Eliquis Plan of care discussed with patient and , their questions answered in detail. Plan of care discussed with RN. Further management of the patient will be dependent on hospital course (1) Pneumonia Qualifiers: Pneumonia type: due to unspecified organism Laterality: bilateral Lung location: unspecified part of lung Qualified Code(s): J18.9 - Pneumonia, unspecified organism (3) Leukocytosis Qualifiers: Leukocytosis type: unspecified Qualified Code(s): D72.829 - Elevated white blood cell count, unspecified (6) Atrial fibrillation Qualifiers: Atrial fibrillation type: chronic Qualified Code(s): I48.2 - Chronic atrial fibrillation (10) Conjunctivitis Qualifiers: Conjunctivitis type: acute Acute conjunctivitis type: unspecified Laterality : bilateral Qualified Code(s): H10.33 - Unspecified acute conjunctivitis, bilateral
--- NOTE | 2017-11-30 22:35 | MB ---
cc: Dionte Panda MD DATE: 11/30/2017 REASON FOR CONSULTATION: Patient with a diagnosis of pneumonia with chronic lymphocytic leukemia, history of large cell lymphoma, history of prostate cancer, history of atrial fibrillation, history of deep venous thrombosis, pulmonary emboli, currently on ibrutinib. PATIENT PROFILE: The patient is and retired. He has 1 daughter and son. He was born in [place], has lived in [place] since 1968. 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 He has never smoked. Alcohol intake is minimal. HISTORY OF PRESENT ILLNESS: The patient is a 77-year-old male with a complex medical history. In 2001, he had a prostatectomy for prostate cancer. He has had no evidence of recurrence. 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 He underwent observation until 2010 when he had diffuse adenopathy and was treated with Cytoxan, fludarabine, and Rituxan, and had an excellent response. In 2014, he developed a large cell lymphoma involving bowel and received R-CHOP and had resection of bowel on 08/17/2014. He has had no evidence of recurrence of the large cell lymphoma. He developed progressive adenopathy and anelevated white cell count. He was felt to have chronic lymphocytic leukemia with a complex karyotype. He is currently taking ibrutinib. This has been successful in that the white count has fallen and the adenopathy has for the most part resolved. He has a history of DVT and pulmonary emboli. He has atrial fibrillation, and for this reason, he takes apixaban 5 mg p.o. b.i.d. He was recently found to have a small left renal mass. I referred him to the [facility], and the radiographic findings are consistent with a renal cell cancer, and he is anticipating having radiofrequency ablation. The patient was doing well until about 4-5 weeks ago when he just started to feel puny. About 3 weeks ago, he developed low-grade fever. He was treated with Keflex. Over the past 2 weeks, he has had continued low-grade fever, fatigue, cough, and a thick greenish sputum production. He deteriorated. He went to the emergency room with the above history and had a CT scan of the thorax. I have reviewed the images and showed him the images as well. He has a dense infiltrate involving the left lower lobe with a small left pleural effusion. There is a mediastinal lymph node measuring about 3 cm in size. On admission on 11/29/2017, hemoglobin is 12.3, white count 14,900, and platelets 221,000 with 80% neutrophils. Today, the hemoglobin is 10.4, white count 10,400, and platelets 160,000. Prior to admission, he had an elevated temperature. Since being started on the antibiotics, he is now afebrile. PAST SURGICAL HISTORY: 1. Appendectomy. 2. Bilateral cataract surgery. 3. Cholecystectomy. 4. Small bowel resection, 08/27/2014, revealing no evidence of residual lymphoma. 5. Tonsillectomy. 6. Excision of melanoma, right forearm, [place] 0.2 mm. 7. Fracture, right ankle. 8. Prostatectomy in 2001 for [place]eme grade 6 adenocarcinoma. At that time, he was found to have small lymphocytic lymphoma involving lymph nodes. PAST MEDICAL HISTORY: 1. Chronic lymphocytic leukemia. 2. Large-cell lymphoma. 3. Left renal mass consistent with renal cell cancer. 4. Atrial fibrillation. 5. DVT and pulmonary embolus. CURRENT MEDICINES PRIOR TO ADMISSION: 1. Allopurinol. 2. Calcium. 3. Diltiazem. 4. Eliquis 5 mg p.o. b.i.d. 5. Imbruvica 420 mg a day. 6. Prilosec. 7. Probiotic. 8. Vitamins. ALLERGIES: MORPHINE. FAMILY HISTORY: Parents are both . Father at 97. Mother at 95. Two sisters. One at age 75 of pancreatic cancer. REVIEW OF SYSTEMS: No change in vision or hearing. No chest pain or palpitations. He has had cough and slight shortness of breath, sputum production. He has had profound fatigue. No abdominal or pelvic pain. No melena or hematochezia. No dysuria or frequency. Minor arthritic pains. No focal weakness. MEDICATIONS IN THE HOSPITAL: Zosyn, vancomycin, allopurinol, and apixaban 5 mg p.o. b.i.d. PHYSICAL EXAMINATION: GENERAL: He does not appear acutely ill, but he is hoarse. VITAL SIGNS: Blood pressure is 120/70, respiratory rate 18, pulse 87 and afebrile, O2 saturation 96%. HEENT: Head is normocephalic. Sclerae and conjunctivae are normal. Oropharynx unremarkable. There is no cervical, supraclavicular, axillary, or inguinal adenopathy. There are rales at the left base. LUNGS: Clear. HEART: Irregular rhythm and rate 80. ABDOMEN: Soft. No hepatosplenomegaly. EXTREMITIES: Trace edema. MUSCULOSKELETAL: No bone pain. NEUROLOGIC: No weakness. Cognition and affect normal. SKIN: Normal. ASSESSMENT: The patient has a left lower lobe pneumonia. He is predisposed to infections for 2 reasons. He has chronic lymphocytic leukemia. In addition, people are susceptible to a wide spectrum of infections with ibrutinib. RECOMMENDATIONS: 1. Aggressive broad spectrum antibiotics. He may need a slightly extended course of antibiotics. 2. Will hold ibrutinib for a short time, and then when he is doing better, probably in about a week, he can go back on the ibrutinib. 3. Other problems consist of atrial fibrillation for which he takes apixaban. 4. Renal mass. He will most likely undergo ablation around January. 5. Chronic lymphocytic leukemia. It is under excellent control. He has a mediastinal lymph node, slightly less than 3 cm, which I suspect is due to his CLL, and does not require any particular intervention. 6. He has had a history of large cell lymphoma and has no recurrence. 7: He has a history of prostate cancer likewise without recurrence. MD EMELY Jalloh/rima , 09:36 PM , 09:50 PM [facility]
[2017-12-01] MEDS: Piperacil/Tazo 3.375 GM Premix 50 ML IV.SIG SCH ×4 (00:57→17:50)
[2017-12-01] MEDS: Sod Chloride 0.9% Inj 1,000 ML IV.CONT SCH ×2 (05:19→11:05)
[2017-12-01 07:50] LABS: Baso % (Auto) 0.4 % (0.0-2.0); Eos # (Auto) 0.1 th/mm3 (0.0-0.4); Eos % (Auto) 0.6 % (0.0-4.0); Hematocrit 31.5 % (39.0-51.0); Lymph % (Auto) 12.1 % (9.0-44.0); Mean Corpuscular HGB Conc 34.8 % (32.0-36.0); Mean Corpuscular Hemoglobin 32.7 pg (27.0-34.0); Mean Corpuscular Volume 93.9 fL (80.0-100.0); Mean Platelet Volume 7.1 fL (7.0-11.0); Mono # (Auto) 0.7 th/mm3 (0.0-0.9); Mono % (Auto) 7.9 % (0.0-8.0); Neut # (Auto) 6.7 th/mm3 (1.8-7.7); Platelet Count 172 th/mm3 (150-450); Red Blood Count 3.35 mil/mm3 (4.50-5.90); Red Cell Distribution Width 16.8 % (11.6-17.2); White Blood Count 8.5 th/mm3 (4.0-11.0)
[2017-12-01 08:40] LABS: Eosinophils 1 % (0-4); Lymphocytes 11 % (9-44); Metamyelocytes 1 % (0-1); Monocytes 4 % (0-8); Myelocytes 1 % (0-0); Ovalocytes 1+
[2017-12-01 08:41] LABS: Platelet Estimate Normal (Normal); Platelet Morphology Normal (Normal)
[2017-12-01] MEDS: Benzonatate 100 MG Capsule PO PRN ×2 (09:00→20:57)
[2017-12-01] MEDS: Allopurinol 300 MG Tablet PO SCH (09:00)
[2017-12-01] MEDS: dilTIAZem CD 240 MG Capsule PO SCH (09:00)
[2017-12-01] MEDS: Erythromycin 0.5% Opth Oint 3.5 GM Tube EACH EYE SCH ×4 (09:00→21:06)
[2017-12-01] MEDS ORDERED: Pharmacy Ordered Lab Info OTHER ONE (09:45)
[2017-12-01 10:27] LABS: Calcium 9.2 mg/dL (8.5-10.1); Carbon Dioxide 27.5 meq/L (21.0-32.0); Magnesium 2.1 mg/dL (1.5-2.5)
[2017-12-01 10:36] LABS: Vancomycin,Trough 14.8 mcg/mL (5.0-10.0)
[2017-12-01] MEDS: Vancomycin Inj 1,500 MG in Sodium Chlor 0.9% Inj 500 ML IV.SIG SCH ×2 (11:04→21:04)
--- NOTE | 2017-12-01 14:06 | P.PNONC ---
Subjective Interval history: Afebrile Patient reports he is starting to feel better Complains of hard chairs in the hospital Denies fever or chills Still with occasional cough Objective Vital Signs/Intake & Output: Vital Signs 11/30/17 16:00 11/30/17 19:46 12/01/17 00:00 Temperature 97.5 F L 97.6 F 98.2 F Pulse Rate 98 H 87 88 Respiratory Rate 16 17 16 Blood Pressure 103/55 L 121/22 L 114/56 L Pulse Oximetry 94 L 96 94 L 12/01/17 04:00 12/01/17 08:00 12/01/17 12:00 Temperature 97.8 F 97.9 F 97.6 F Pulse Rate 84 91 H 87 Respiratory Rate 16 17 16 Blood Pressure 108/62 113/59 L 119/59 L Pulse Oximetry 99 94 L 96 Intake & Output 11/30/17 12/01/17 12/01/17 18:59 06:59 18:59 Intake Total 2715 / 2715 2415 / 2415 515 / 515 Balance 2715 / 2715 2415 / 2415 515 / 515 Weight 245 lb 13.047 oz Intake: IV 1615 / 1615 1615 / 1615 515 / 515 NS Inj 1,000 ML @ 75 mls/hr IV. 1000 / 1000 1000 / 1000 CONT .[id number] [facility] Rx#:[id number] Zosyn 3.375 GM Premix 50 ML @ 100 / 100 100 / 100 100 mls/hr IV.SIG Q6H [facility] Rx#: [id number] Vancomycin Inj 1,500 MG In NS 515 / 515 515 / 515 515 / 515 Inj 500 ML @ 250 mls/hr IV.SIG Q12H [facility] Rx#:[id number] Oral 1100 / 1100 800 / 800 Other: # Voids 3 3 Date of Last Bowel Movement 11/29/17 11/30/17 # Bowel Movements 1 1 Result Diagrams: 12/01/17 06:33 12/01/17 09:15 Laboratory Results: Laboratory Results - last 24 hr 12/01/17 12/01/17 06:33 09:15 WBC 8.5 RBC 3.35 L Hgb 11.0 L Hct 31.5 L MCV 93.9 MCH 32.7 MCHC 34.8 RDW 16.8 Plt Count 172 MPV 7.1 Prelim Diff (Auto) Slide review pending Neut % (Auto) 79.0 H Lymph % (Auto) 12.1 [place] % (Auto) 7.9 Eos % (Auto) 0.6 Baso % (Auto) 0.4 Neut # (Auto) 6.7 Lymph # (Auto) 1.0 [place] # (Auto) 0.7 Eos # (Auto) 0.1 Baso # (Auto) 0.0 WBC Differential Manual diff final Seg Neuts % (Manual) 81 H Band Neuts % (Manual) 1 Lymphocytes % (Manual) 11 Monocytes % (Manual) 4 Eosinophils % (Manual) 1 Metamyelocytes % (Man) 1 Myelocytes % (Man) 1 H Abs Neuts (Manual) 7.1 Differential Comment . Platelet Estimate Normal Platelet Morphology Normal Ovalocytes 1+ H Sodium 138 Potassium 4.0 Chloride 104 Carbon Dioxide 27.5 Anion Gap 7 BUN 11 Creatinine 0.98 Estimated GFR 75 L Random Glucose 109 H Calcium 9.2 Magnesium 2.1 Vancomycin Trough 14.8 H Culture Results: Microbiology 11/29/17 15:05 Aerobic Blood Culture - Preliminary Blood - Peripheral No growth in 2 days Anaerobic Blood Culture - Preliminary No growth in 2 days 11/29/17 14:50 Aerobic Blood Culture - Preliminary Blood - Peripheral No growth in 2 days Anaerobic Blood Culture - Preliminary No growth in 2 days 11/30/17 19:55 Gram Stain - Final Sputum - Expectorated Sputum Medications: Active Medications Generic Name Dose Route Start Last Admin Trade Name Freq PRN Reason Stop Dose Admin Allopurinol 300 mg 11/30/17 09:00 12/01/17 09:00 Zyloprim PO 300 mg DAILY [facility] Administration Apixaban 5 mg 11/29/17 21:00 12/01/17 09:00 Eliquis PO 5 mg BID [facility] Administration Benzonatate 100 mg 11/29/17 18:46 12/01/17 09:00 Tessalon Perles PO 100 mg Q8H PRN Administration COUGH Diltiazem HCl 240 mg 11/30/17 09:00 12/01/17 09:00 Cardizem Cd 24hr PO 240 mg DAILY [facility] Administration Erythromycin 1 applicatio 11/29/17 21:00 12/01/17 13:41 Ilotycin 0.5% Opth Oint EACH EYE 1 applicatio QID [facility] Administration Fluticasone Propionate 2 spray 11/29/17 19:00 12/01/17 09:22 Flonase Nasal [place] NASAL 2 spray DAILY [facility] Administration Piperacillin/Tazobactam/Dextrose 50 mls @ 100 mls/hr 11/30/17 00:00 12/01/17 13:39 Zosyn 3.375 Gm Premix IV.SIG 100 mls/hr Q6H [facility] Administration Sodium Chloride 1,000 mls @ 75 mls/hr 11/29/17 20:00 12/01/17 11:05 Ns Inj IV.CONT Not Given .[id number] [facility] Vancomycin HCl 1,500 mg/ 515 mls @ 250 mls/hr 11/29/17 22:00 12/01/17 13:35 Sodium Chloride IV.SIG Infused Q12H [facility] Infusion Objective Remarks: GENERAL: Well-appearing older gentleman sitting up in chair at bedside in no obvious distress SKIN: Warm and dry. HEAD: Normocephalic. Somewhat hoarse EYES: No scleral icterus. No injection or drainage. NECK: Supple, trachea midline. CARDIOVASCULAR: Regular rate and rhythm without murmurs. RESPIRATORY: Coarse lung sounds at the bases GASTROINTESTINAL: Abdomen soft, non-tender, nondistended. EXTREMITIES: No cyanosis, or edema. MUSCULOSKELETAL: Adequate muscle tone. NEUROLOGICAL: No obvious focal deficit. Awake, alert, and oriented x3. Assessment/Plan - Plan 77-year-old male with history of chronic lymphocytic leukemia admitted with pneumonia. He also has history of prostate cancer, A. fib, DVT and pulmonary emboli. The patient is clinically improved. His sputum culture is still pending. His blood cultures have been negative times 2 days. He continues on IV antibiotics with vancomycin and Zosyn. I would anticipate that he will be on these for another day or so and if blood cultures remain negative he can be transitioned to p.o. antibiotics. His ibrutinib is on hold. It is common to get infections with the ibrutinib. I discussed with the patient that this will likely be on hold for around 1 weeks time depending on his improvement/clinical status.
--- NOTE | 2017-12-01 17:38 | P.PNIM ---
Subjective Interval history: Patient continues to have a cough. He does not have any other current complaints. Physical Exam Vital signs: Vital Signs 11/30/17 19:46 12/01/17 00:00 12/01/17 04:00 Temperature 97.6 F 98.2 F 97.8 F Pulse Rate 87 88 84 Respiratory Rate 17 16 16 Blood Pressure 121/22 L 114/56 L 108/62 Pulse Oximetry 96 94 L 99 12/01/17 08:00 12/01/17 12:00 12/01/17 16:00 Temperature 97.9 F 97.6 F 97.9 F Pulse Rate 91 H 87 73 Respiratory Rate 17 16 18 Blood Pressure 113/59 L 119/59 L 101/56 L Pulse Oximetry 94 L 96 94 L Intake & Output 11/30/17 12/01/17 12/01/17 18:59 06:59 18:59 Intake Total 2715 / 2715 2415 / 2415 1325 / 1325 Balance 2715 / 2715 2415 / 2415 1325 / 1325 Weight 111.5 kg Intake: IV 1615 / 1615 1615 / 1615 565 / 565 NS Inj 1,000 ML @ 75 mls/hr IV. 1000 / 1000 1000 / 1000 CONT .[id number] NESHA Rx#:[id number] Zosyn 3.375 GM Premix 50 ML @ 100 / 100 100 / 100 50 / 50 100 mls/hr IV.SIG Q6H NESHA Rx#: [id number] Vancomycin Inj 1,500 MG In NS 515 / 515 515 / 515 515 / 515 Inj 500 ML @ 250 mls/hr IV.SIG Q12H NESHA Rx#:[id number] Oral 1100 / 1100 800 / 800 760 / 760 Other: # Voids 3 3 4 Date of Last Bowel Movement 11/29/17 11/30/17 # Bowel Movements 1 1 0 Narrative: General patient complains of a cough HEENT extraocular movements are intact, clear oropharyngeal mucosa, no JVD Cardiovascular S1-S2 audible Respiratory left basilar crackles on auscultation. Abdomen soft, nontender, nondistended, normal bowel sounds Extremities nonpitting edema noted of bilateral lower extremities up to the shins. Neuro cranial patient moves all 4 extremities sensation is intact bilaterally Results - Labs CBC & Chem 7: 12/01/17 06:33 12/01/17 09:15 Laboratory Results - last 24 hr 12/01/17 12/01/17 06:33 09:15 WBC 8.5 RBC 3.35 L Hgb 11.0 L Hct 31.5 L MCV 93.9 MCH 32.7 MCHC 34.8 RDW 16.8 Plt Count 172 MPV 7.1 Prelim Diff (Auto) Slide review pending Neut % (Auto) 79.0 H Lymph % (Auto) 12.1 Kaufman % (Auto) 7.9 Eos % (Auto) 0.6 Baso % (Auto) 0.4 Neut # (Auto) 6.7 Lymph # (Auto) 1.0 Kaufman # (Auto) 0.7 Eos # (Auto) 0.1 Baso # (Auto) 0.0 WBC Differential Manual diff final Seg Neuts % (Manual) 81 H Band Neuts % (Manual) 1 Lymphocytes % (Manual) 11 Monocytes % (Manual) 4 Eosinophils % (Manual) 1 Metamyelocytes % (Man) 1 Myelocytes % (Man) 1 H Abs Neuts (Manual) 7.1 Differential Comment . Platelet Estimate Normal Platelet Morphology Normal Ovalocytes 1+ H Sodium 138 Potassium 4.0 Chloride 104 Carbon Dioxide 27.5 Anion Gap 7 BUN 11 Creatinine 0.98 Estimated GFR 75 L Random Glucose 109 H Calcium 9.2 Magnesium 2.1 Vancomycin Trough 14.8 H Microbiology 11/30/17 19:55 Sputum - Expectorated Sputum Gram Stain - Final 11/30/17 19:55 Sputum - Expectorated Sputum Sputum Culture - Preliminary Heavy growth normal respiratory aliyah at 24 hours 11/29/17 15:05 Blood - Peripheral Aerobic Blood Culture - Preliminary No growth in 2 days 11/29/17 15:05 Blood - Peripheral Anaerobic Blood Culture - Preliminary No growth in 2 days 11/29/17 14:50 Blood - Peripheral Aerobic Blood Culture - Preliminary No growth in 2 days 11/29/17 14:50 Blood - Peripheral Anaerobic Blood Culture - Preliminary No growth in 2 days Assessment and Plan - Assessment (1) Pneumonia Code(s): J18.9 - Pneumonia, unspecified organism Status: Acute (2) Failure of outpatient treatment Code(s): Z78.9 - Other specified health status Status: Acute (3) Leukocytosis Code(s): D72.829 - Elevated white blood cell count, unspecified Status: Acute (4) CLL (chronic lymphocytic leukemia) Code(s): C91.90 - Lymphoid leukemia, unspecified not having achieved remission Status: Chronic (5) Left renal mass Code(s): N28.89 - Other specified disorders of kidney and ureter Status: Acute (6) Atrial fibrillation Code(s): I48.91 - Unspecified atrial fibrillation Status: Chronic (7) Transaminitis Code(s): R74.0 - Nonspecific elevation of levels of transaminase and lactic acid dehydrogenase [LDH] Status: Acute (8) Hx pulmonary embolism Code(s): Z86.711 - Personal history of pulmonary embolism Status: Chronic (9) H/O melanoma excision Code(s): Z98.890 - Other specified postprocedural states; Z85.820 - Personal history of malignant melanoma of skin Status: Chronic (10) Conjunctivitis Code(s): H10.9 - Unspecified conjunctivitis Status: Acute - Plan 77-year-old male with a medical history including large cell lymphoma, CLL currently on Imbruvica following up with Rusty Leggett on [facility], recent melanoma excision, pulmonary emboli. Presents complaining of cough, fever, fatigue, chest congestion for the last 2 weeks. Has been on 3 different antibiotics and cjko-spv-gppxmxm medications, has failed outpatient therapy. 1. Sepsis secondary to left lower lobe pneumonia with pleural effusion. Failed outpatient Z-Gabe, Keflex, Ceftin Patient is immunocompromise currently on Imbruvica for CLL. The patient was evaluated by heme oncology who recommended holding the Imbruvica for approximately 1 week since the patient currently has an active infection. I appreciate these recommendations. He has remained afebrile overnight. Labs show an elevated WBC count. WBC count now downtrending. CT scan of the chest shows a left lower lobe pneumonia as well as a left sided pleural effusion. He is currently on IV Zosyn and vancomycin. Continue DuoNeb treatments as needed Blood cultures are pending. Sputum culture ordered and are currently pending Continue IV fluids. 2. CLL 3. Left renal mass Patient is a diagnosis of CLL and is currently on Imbruvica, Which is currently on hold. Heme oncology consultation ordered. As per documentation the patient has follow-up scheduled for January at [facility] with a repeat CT scan to evaluate the renal mass. 4. Conjunctivitis Possibly viral. Erythromycin ointment ordered by admitting team. Continue current management. No purulent drainage noted. 5. Atrial fibrillation 6. History of pulmonary embolus Heart rate is under control. Continue Cardizem. Continue Eliquis (1) Pneumonia Qualifiers: Pneumonia type: due to unspecified organism Laterality: bilateral Lung location: unspecified part of lung Qualified Code(s): J18.9 - Pneumonia, unspecified organism (3) Leukocytosis Qualifiers: Leukocytosis type: unspecified Qualified Code(s): D72.829 - Elevated white blood cell count, unspecified (6) Atrial fibrillation Qualifiers: Atrial fibrillation type: chronic Qualified Code(s): I48.2 - Chronic atrial fibrillation (10) Conjunctivitis Qualifiers: Conjunctivitis type: acute Acute conjunctivitis type: unspecified Laterality : bilateral Qualified Code(s): H10.33 - Unspecified acute conjunctivitis, bilateral
[2017-12-01] MEDS: HYDROcodone 5 MG/Homatropine 1.5 MG Syrup 5 ML UDC PO PRN (21:03)
[2017-12-02] MEDS: Piperacil/Tazo 3.375 GM Premix 50 ML IV.SIG SCH ×3 (00:08→12:14)
[2017-12-02] MEDS: Sod Chloride 0.9% Inj 1,000 ML IV.CONT SCH (02:38)
[2017-12-02] MEDS: HYDROcodone 5 MG/Homatropine 1.5 MG Syrup 5 ML UDC PO PRN ×2 (02:41→08:31)
[2017-12-02] MEDS: Erythromycin 0.5% Opth Oint 3.5 GM Tube EACH EYE SCH ×2 (08:28→12:13)
[2017-12-02] MEDS: Allopurinol 300 MG Tablet PO SCH (08:28)
[2017-12-02] MEDS: dilTIAZem CD 240 MG Capsule PO SCH (08:28)
[2017-12-02] MEDS: Benzonatate 100 MG Capsule PO PRN (08:31)
[2017-12-02 08:54] VITALS: RESP 18; O2SAT 94
[2017-12-02] MEDS: Vancomycin Inj 1,500 MG in Sodium Chlor 0.9% Inj 500 ML IV.SIG SCH (10:09)
--- NOTE | 2017-12-02 11:36 | P.DS ---
Date of admission: 11/29/17 17:46 Primary care physician: Madelin Tolbert MD Attending physician on discharge: Dr. Carl Brief History from admission: Mr. Rosario is a pleasant 77-year-old male with history of large cell lymphoma, prostate cancer status post prostatectomy, recent diagnosis of Rusty lara on anticoagulation, recent pancreatitis, status post excision of right forearm melanoma September 2017, recent finding of left renal mass, CLL on Imbruvica. The patient presented with complaints of cough that has been ongoing for nearly a month. He also had subjective fevers and chills. DS: Diagnosis - Discharge Diagnosis (1) Pneumonia Status: Acute (2) Failure of outpatient treatment Status: Acute (3) Leukocytosis Status: Acute (4) CLL (chronic lymphocytic leukemia) Status: Chronic (5) Left renal mass Status: Acute (6) Atrial fibrillation Status: Chronic (7) Transaminitis Status: Acute (8) Hx pulmonary embolism Status: Chronic (9) H/O melanoma excision Status: Chronic (10) Conjunctivitis Status: Acute DS: Medications - Discharge Medications Prescriptions: levofloxacin 750 mg PO DAILY 4 Days #4 tab DS: Summary Hospital Course: 77-year-old male with a medical history including large cell lymphoma, CLL currently on Imbruvica following up with Rusty Leggett on Eliquis, recent melanoma excision, pulmonary emboli. Presents complaining of cough, fever, fatigue, chest congestion for the last 2 weeks. Has been on 3 different antibiotics and nyap-edg-bzcgkah medications, has failed outpatient therapy. 1. Sepsis secondary to left lower lobe pneumonia with pleural effusion. The patient was complaining of a cough productive of yellowish sputum. He had an elevated WBC count and was tachycardic. Imaging of the chest showed a left lower lobe pneumonia. He was started on IV fluids as well as IV antibiotics. While in the hospital his symptoms improved significantly. WBC count has down trended and normalized. He has received 3 days of IV antibiotic treatment while in-house. He will be discharged on 4 more days of p.o. Levaquin. The patient has CLL and is taking Imbruvica which was held as per heme oncology recommendations due to the patient's acute pneumonia. He may restart Imbruvica after 1 week. He has remained afebrile. Blood cultures are negative. Sputum cultures grew normal respiratory aliyah. 2. CLL 3. Left renal mass Patient is a diagnosis of CLL and was on Imbruvica which is currently on hold as per heme oncology recommendations. The medication can be restarted after [address] scan also showed a left renal mass and as per documentation the patient has follow-up scheduled for January at [facility] with a repeat CT scan to evaluate the renal mass. 4. Conjunctivitis The patient did complain of watery eyes and redness in his eyes bilaterally on admission. The conjunctivitis is likely viral and has improved significantly since admission. 5. Atrial fibrillation 6. History of pulmonary embolus Continue current medications. Continue Eliquis Patient is currently stable he does not have any complaints of shortness of breath. He will be discharged home today. - Time Spent with Patient Total time spent providing and/or coordinating discharge services: Greater than 30 minutes - Quality: VTE Deep Vein Thrombosis/Pulmonary Embolism Present on Admission: No Exam Vital signs: Vital Signs 12/01/17 12:00 12/01/17 16:00 12/01/17 18:28 Temperature 97.6 F 97.9 F Pulse Rate 87 73 Respiratory Rate 16 18 Blood Pressure 119/59 L 101/56 L Pulse Oximetry 96 94 L 94 L 12/01/17 20:00 12/02/17 00:00 12/02/17 04:00 Temperature 97.7 F 98.1 F 97.8 F Pulse Rate 82 77 117 H Respiratory Rate 20 20 20 Blood Pressure 102/54 L 132/59 L 116/57 L Pulse Oximetry 96 98 92 L 12/02/17 08:00 Temperature 97.6 F Pulse Rate 94 H Respiratory Rate 18 Blood Pressure 111/57 L Pulse Oximetry 94 L Intake & Output 12/01/17 12/02/17 12/02/17 18:59 06:59 18:59 Intake Total 1375 / 1375 1365 / 1365 50 / 50 Balance 1375 / 1375 1365 / 1365 50 / 50 Weight 115.2 kg Intake: IV 615 / 615 565 / 565 50 / 50 Zosyn 3.375 GM Premix 50 ML @ 100 / 100 50 / 50 50 / 50 100 mls/hr IV.SIG Q6H NESHA Rx#: [id number] Vancomycin Inj 1,500 MG In NS 515 / 515 515 / 515 Inj 500 ML @ 250 mls/hr IV.SIG Q12H NESHA Rx#:[id number] Oral 760 / 760 800 / 800 Other: # Voids 4 3 Date of Last Bowel Movement 11/30/17 # Bowel Movements 0 2 Narrative: General patient says that his cough has improved significantly. HEENT extraocular movements are intact, clear oropharyngeal mucosa, no JVD Cardiovascular S1-S2 audible Respiratory left basilar crackles on auscultation, improved from yesterday. Abdomen soft, nontender, nondistended, normal bowel sounds Extremities nonpitting edema noted of bilateral lower extremities up to the shins. Neuro cranial patient moves all 4 extremities sensation is intact bilaterally Results Procedures completed during hospitalization: none Labs on day of discharge: Preliminary micro results at discharge 11/29/17 15:05 Aerobic Blood Culture - Preliminary Blood - Peripheral No growth in 3 days Anaerobic Blood Culture - Preliminary No growth in 3 days 11/29/17 14:50 Aerobic Blood Culture - Preliminary Blood - Peripheral No growth in 3 days Anaerobic Blood Culture - Preliminary No growth in 3 days - Impressions ITS Impressions Chest CT 11/29/17 14:38 CONCLUSION: 1. Left pleural effusion, and left lower lobe pulmonary consolidation identified. 2. Multiple right basilar airspace disease. 3. Subcarinal lymphadenopathy. Discharge Plan - Discharge Disposition Patient Disposition: Discharge Home - Discharge Condition Condition: Good - Discharge Order Discharge Orders: Discharge Order (Routine); Ordered 12/02/17 Ordered By: Lauryn Carl - Physicians Team Primary Care Provider: Madelin Tolbert Attending Provider: Lauryn Carl Other Providers: Dionte Panda MD
[2017-12-02 12:35] VITALS: BP 115/58; PULSE 92; TEMP 97.8
[2017-12-03] MEDS ORDERED: levoFLOXacin 750 MG Tablet PO SCH (09:00)
[2017-12-05] MEDS ORDERED: Pharmacy Ordered Lab Info OTHER ONE (09:45)
== END 2017-12-02 13:32 | disposition home or self-care (01) ==
LOC: NEPE 12:56 → NEDA 17:46 → N07 18:58
PROVIDERS: ADMIT Hospitalist; ATTEND Hospitalist